=== PATIENT | female | born 1965 | race Caucasian/White ===

== ENCOUNTER → 2016-04-01 | Outpatient (CLI) | payer OTHER ==
[2016-04-01 10:31] LABS: ALBUMIN 4.2 g/dL (3.4-5.0); TOTAL PROTEIN 7.2 g/dL (6.4-8.5)
== END ==
LOC: LAB 08:48
PROVIDERS: ATTEND Family Medicine
DX: R94.5 Abnormal results of liver function studies (principal); E78.5 Hyperlipidemia, unspecified; E11.9 Type 2 diabetes mellitus without complications
CPT/HCPCS: 36415; 80061; 80076; 83036